=== PATIENT | male | born 1985 | race Two or more races ===

== ENCOUNTER 2019-06-13 13:53 | Emergency (ER) | payer SELFPAY ==
[2019-06-13] MEDS ORDERED: Sodium Chloride 0.9% 1,000 ML IV ONE ×2 (14:15→15:36)
[2019-06-13] MEDS ORDERED: Sodium Chloride 0.9% 10 ML Syringe FLUSH PRN (14:15)
[2019-06-13] MEDS ORDERED: Pantoprazole 40 MG Vial IVPUSH ONE (14:23)
--- NOTE | 2019-06-13 14:45 | EDM.PDOC ---
ED HPI GENERAL MEDICAL PROBLEM - General Chief Complaint: Gastrointestinal Problem Stated Complaint: RECTAL BLEEDING Time Seen by Provider: 06/13/19 14:03 Source of Information: Reports: Patient History Limitations: Reports: Language Barrier (speaks some bengali) - History of Present Illness INITIAL COMMENTS - FREE TEXT/NARRATIVE: Alfonso is a 33 year old male here for hematemesis and melena. Reports 3 days ago he had multiple episodes of hematemesis. Vomited both bright red blood and coffee ground emesis. Has not vomited now since 3 days ago. Reports melanic stools and diarrhea. This has continued the past 3 days. No lightheadedness, syncope, abdominal pain, chest pain or shortness of breath at rest. Reports fatigue and dyspnea on exertion. Patient reports in the past he has been diagnosed with esophageal varices. 2 years ago he received a blood transfusion due to this. 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 He denies any drug or alcohol abuse. Patient reports he is from [place]. Here visiting. He speaks Singaporean ok but a language barrier is present. - Related Data Allergies Allergy/AdvReac Type Severity Reaction Status Date / Time No Known Allergies Allergy Verified 06/13/19 15:32 Home Meds: Home Meds . [No Known Home Meds] 06/13/19 [History] Past Medical History HEENT History: Reports: Other (See Below) Other HEENT History: esophageal varices Social & Family History - Tobacco Use Smoking Status *Q: Never Smoker Second Hand Smoke Exposure: No - Caffeine Use Caffeine Use: Reports: None - Recreational Drug Use Recreational Drug Use: No ED ROS GENERAL - Review of Systems Review Of Systems: See Below Constitutional: Reports: Weakness, Fatigue Respiratory: Denies: Shortness of Breath Cardiovascular: Reports: Dyspnea on Exertion. Denies: Chest Pain, Syncope GI/Abdominal: Reports: Diarrhea, Hematemesis, Melena. Denies: Abdominal Pain, Nausea, Vomiting Neurological: Denies: Syncope ED EXAM, GI/ABD - Physical Exam Exam: See Below Exam Limited By: No Limitations General Appearance: Alert, WD/WN, Mild Distress, Obese Respiratory/Chest: No Respiratory Distress, Lungs Clear, Normal Breath Sounds Cardiovascular: Normal Peripheral Pulses, Regular Rate, Rhythm, No Murmur GI/Abdominal Exam: Normal Bowel Sounds, Soft, Non-Tender Neurological: Alert, Oriented, Normal Cognition Psychiatric: Normal Affect, Normal Mood Skin Exam: Warm, Diaphoretic, Pallor EKG INTERPRETATION EKG Date: 06/13/19 Time: 14:52 Rhythm: NSR Rate (Beats/Min): 89 [place]: Normal P-Wave: Present QRS: Normal ST-T: Normal QT: Prolonged EKG Interpretation Comments: NSR at 89 bpm. Prolonged QT with a QTc of 501. Reviewed by myself and Dr. Artis. Course - Vital Signs Last Recorded V/S: Last Vital Signs Temp 98.2 F 06/13/19 13:59 Pulse 85 06/13/19 13:59 Resp 16 06/13/19 13:59 BP 115/43 L 06/13/19 13:59 Pulse Ox 100 06/13/19 13:59 Orthostatic Blood Pressure [ 72/50 Standing] Orthostatic Blood Pressure [ 98/45 Supine] - Orders/Labs/Meds Orders: Active Orders 24 hr Category Date Time Status Cardiac Monitoring [RC] . DIRECTED Care 06/13/19 14:15 Active EKG 12 Lead [EKG Documentation Completion] [RC] STAT Care 06/13/19 14:45 Active Orthostatic Vital Signs [RC] ASDIRECTED Care 06/13/19 14:15 Active Peripheral IV Care [RC] . DIRECTED Care 06/13/19 14:16 Active LACTIC ACID [CHEM] Stat Lab 06/13/19 14:45 Received MAGNESIUM [CHEM] Stat Lab 06/13/19 14:45 Received RED BLOOD CELLS LP [BBK] Stat Lab 06/13/19 14:45 Received TYPE AND SCREEN [BBK] Stat Lab 06/13/19 14:45 Received UA W/O MICROSCOPIC [URIN] Stat Lab 06/13/19 14:40 Ordered Sodium Chloride 0.9% [Normal Saline] 1,000 ml Med 06/13/19 15:36 Active IV ONETIME Sodium Chloride 0.9% [Saline Flush] Med 06/13/19 14:15 Active 10 ml FLUSH ASDIRECTED PRN Peripheral IV Insertion Adult [OM.PC] Routine Oth 06/13/19 14:15 Ordered Transfuse Red Blood Cells [COMM] Stat Oth 06/13/19 14:30 Ordered Transfuse Red Blood Cells [COMM] Stat Oth 06/13/19 14:30 Ordered Medication Orders Sodium Chloride (Normal Saline) 1,000 mls @ 999 mls/hr IV ONETIME ONE Stop: 06/13/19 16:36 Last Admin: 06/13/19 15:37 Dose: 999 mls/hr Sodium Chloride (Saline Flush) 10 ml FLUSH ASDIRECTED PRN PRN Reason: Keep Vein Open Last Admin: 06/13/19 14:36 Dose: 10 ml Labs: Laboratory Tests 06/13/19 06/13/19 06/13/19 Range/Units 14:09 14:45 14:45 WBC 10.45 H (4.23-9.07) K/mm3 RBC 1.78 L (4.63-6.08) M/mm3 Hgb 3.8 L* (13.7-17.5) gm/dl Hct 13.6 L (40.1-51.0) % MCV 76.4 L (79.0-92.2) fl MCH 21.3 L (25.7-32.2) pg MCHC 27.9 L (32.2-35.5) g/dl RDW Std Deviation 46.6 H (35.1-43.9) fL Plt Count 191 (163-337) K/mm3 MPV 11.0 (9.4-12.3) fl Neut % (Auto) 54.3 (34.0-67.9) % Lymph % (Auto) 29.4 (21.8-53.1) % Coos % (Auto) 14.2 H (5.3-12.2) % Eos % (Auto) 0.8 (0.8-7.0) Baso % (Auto) 0.2 (0.1-1.2) % Neut # (Auto) 5.69 H (1.78-5.38) K/mm3 Lymph # (Auto) 3.07 (1.32-3.57) K/mm3 Coos # (Auto) 1.48 H (0.30-0.82) K/mm3 Eos # (Auto) 0.08 (0.04-0.54) K/mm3 Baso # (Auto) 0.02 (0.01-0.08) K/mm3 Manual Slide Review Abnormal smear PT 11.8 (9.7-12.0) SECONDS INR 1.09 APTT 22 (22-31) SECONDS Sodium 136 (136-145) mEq/L Potassium 3.6 (3.5-5.1) mEq/L Chloride 102 (98-107) mEq/L Carbon Dioxide 24 (21-32) mEq/L Anion Gap 13.6 (5-15) BUN 26 H (7-18) mg/dL Creatinine 1.3 (0.7-1.3) mg/dL Est Cr Clr Drug Dosing 86.76 mL/min Estimated GFR (MDRD) > 60 (>60) mL/min BUN/Creatinine Ratio 20.0 H (14-18) Glucose 119 H (74-106) mg/dL Calcium 7.6 L (8.5-10.1) mg/dL Total Bilirubin 1.0 (0.2-1.0) mg/dL AST 42 H (15-37) U/L ALT 28 (16-63) U/L Alkaline Phosphatase 66 (46-116) U/L Total Protein 5.5 L (6.4-8.2) g/dl Albumin 2.9 L (3.4-5.0) g/dl Globulin 2.6 gm/dL Albumin/Globulin Ratio 1.1 (1-2) Lipase (73-393) U/L Ethyl Alcohol (0.00) gm% 06/13/19 Range/Units 14:45 WBC (4.23-9.07) K/mm3 RBC (4.63-6.08) M/mm3 Hgb (13.7-17.5) gm/dl Hct (40.1-51.0) % MCV (79.0-92.2) fl MCH (25.7-32.2) pg MCHC (32.2-35.5) g/dl RDW Std Deviation (35.1-43.9) fL Plt Count (163-337) K/mm3 MPV (9.4-12.3) fl Neut % (Auto) (34.0-67.9) % Lymph % (Auto) (21.8-53.1) % Coos % (Auto) (5.3-12.2) % Eos % (Auto) (0.8-7.0) Baso % (Auto) (0.1-1.2) % Neut # (Auto) (1.78-5.38) K/mm3 Lymph # (Auto) (1.32-3.57) K/mm3 Coos # (Auto) (0.30-0.82) K/mm3 Eos # (Auto) (0.04-0.54) K/mm3 Baso # (Auto) (0.01-0.08) K/mm3 Manual Slide Review PT (9.7-12.0) SECONDS INR APTT (22-31) SECONDS Sodium (136-145) mEq/L Potassium (3.5-5.1) mEq/L Chloride (98-107) mEq/L Carbon Dioxide (21-32) mEq/L Anion Gap (5-15) BUN (7-18) mg/dL Creatinine (0.7-1.3) mg/dL Est Cr Clr Drug Dosing mL/min Estimated GFR (MDRD) (>60) mL/min BUN/Creatinine Ratio (14-18) Glucose (74-106) mg/dL Calcium (8.5-10.1) mg/dL Total Bilirubin (0.2-1.0) mg/dL AST (15-37) U/L ALT (16-63) U/L Alkaline Phosphatase (46-116) U/L Total Protein (6.4-8.2) g/dl Albumin (3.4-5.0) g/dl Globulin gm/dL Albumin/Globulin Ratio (1-2) Lipase 582 H (73-393) U/L Ethyl Alcohol 0.00 (0.00) gm% Meds: Medications Generic Name Dose Route Start Last Admin Trade Name Freq PRN Reason Stop Dose Admin Sodium Chloride 1,000 mls @ 999 mls/hr 06/13/19 15:36 06/13/19 15:37 Normal Saline IV 06/13/19 16:36 999 mls/hr ONETIME ONE Administration Sodium Chloride 10 ml 06/13/19 14:15 06/13/19 14:36 Saline Flush FLUSH 10 ml ASDIRECTED PRN Administration Keep Vein Open Discontinued Medications Generic Name Dose Route Start Last Admin Trade Name Freq PRN Reason Stop Dose Admin Sodium Chloride 1,000 mls @ 999 mls/hr 06/13/19 14:15 06/13/19 14:26 Normal Saline IV 06/13/19 15:15 999 mls/hr ONETIME ONE Administration Pantoprazole Sodium 80 mg 06/13/19 14:23 06/13/19 14:36 Protonix Iv IVPUSH 06/13/19 14:24 80 mg BOLUS ONE Administration - Re-Assessments/Exams Free Text/Narrative Re-Assessment/Exam: 06/13/19 16:[address] 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 Will start octreotide bolus and drip. Lab reports + antibodies to blood. unfortunately will have to give blood despite + antibody testing. Patient to go by rotors to [place]. Departure - Departure Time of Disposition: 16:21 Disposition: DC/Tfer to Acute Hospital 02 Condition: Critical Clinical Impression: Esophageal varices, Upper GI bleed - Discharge Information *PRESCRIPTION DRUG MONITORING PROGRAM REVIEWED*: No *COPY OF PRESCRIPTION DRUG MONITORING REPORT IN PATIENT ENRRIQUE: No Referrals: PCP,None [Primary Care Provider] - Forms: ED Department Discharge Additional Instructions: patient to go by rotars to [facility] in [place]. Dr. Schroeder in the ER accepting. Sepsis Event Note - Evaluation Sepsis Screening Result: No Definite Risk - Focused Exam Vital Signs: Vital Signs Temp Pulse Resp BP Pulse Ox 06/13/19 13:59 98.2 F 85 16 115/43 L 100 Date Exam was Performed: 06/13/19 Time Exam was Performed: 15:56 - My Orders Last 24 Hours: My Active Orders 06/13/19 14:15 Cardiac Monitoring [RC] . DIRECTED Orthostatic Vital Signs [RC] ASDIRECTED Sodium Chloride 0.9% [Saline Flush] 10 ml FLUSH ASDIRECTED PRN Peripheral IV Insertion Adult [OM.PC] Routine 06/13/19 14:16 Peripheral IV Care [RC] . DIRECTED 06/13/19 14:30 Transfuse Red Blood Cells [COMM] Stat Transfuse Red Blood Cells [COMM] Stat 06/13/19 14:40 UA W/O MICROSCOPIC [URIN] Stat 06/13/19 14:45 EKG 12 Lead [EKG Documentation Completion] [RC] STAT LACTIC ACID [CHEM] Stat MAGNESIUM [CHEM] Stat RED BLOOD CELLS LP [BBK] Stat TYPE AND SCREEN [BBK] Stat 06/13/19 15:36 Sodium Chloride 0.9% [Normal Saline] 1,000 ml IV ONETIME - Assessment/Plan Last 24 Hours: My Active Orders 06/13/19 14:15 Cardiac Monitoring [RC] . DIRECTED Orthostatic Vital Signs [RC] ASDIRECTED Sodium Chloride 0.9% [Saline Flush] 10 ml FLUSH ASDIRECTED PRN Peripheral IV Insertion Adult [OM.PC] Routine 06/13/19 14:16 Peripheral IV Care [RC] . DIRECTED 06/13/19 14:30 Transfuse Red Blood Cells [COMM] Stat Transfuse Red Blood Cells [COMM] Stat 06/13/19 14:40 UA W/O MICROSCOPIC [URIN] Stat 06/13/19 14:45 EKG 12 Lead [EKG Documentation Completion] [RC] STAT LACTIC ACID [CHEM] Stat MAGNESIUM [CHEM] Stat RED BLOOD CELLS LP [BBK] Stat TYPE AND SCREEN [BBK] Stat 06/13/19 15:36 Sodium Chloride 0.9% [Normal Saline] 1,000 ml IV ONETIME
[2019-06-13] MEDS ORDERED: Octreotide 500 MCG in Sodium Chloride 0.9% 499 ML IV SCH (16:15)
--- NOTE | 2019-06-14 07:43 | CR ---
Chest: Portable view of the chest was obtained. Comparison: No previous chest imaging is available. Heart size is mildly prominent. Upper mediastinum is normal. Lungs are clear. Bony structures are grossly intact. Impression: 1. Heart size appears somewhat prominent. If etiology not known clinically, consider echocardiogram. 2. Nothing acute is otherwise seen on portable chest x-ray. Diagnostic code #3 This report was dictated in MDT
== END 2019-06-13 17:05 ==
LOC: JD.ED 13:53
DX: I85.01 Esophageal varices with bleeding (principal)
CPT/HCPCS: 36415; 71045; 80053; 80307; 83605; 83690; 83735; 85025; 85610; 85730; 93005; 96361; 96365; 96375; 99285; C9113; J2354; J7030; J7040; P9016; 93010; 99284